=== PATIENT | male | born 1950 | race Caucasian/White ===

== ENCOUNTER → 2020-03-01 | Outpatient (REF) | payer MEDICARE, OTHER ==
[2020-03-01 17:56] LABS: CREATININE, URINE 77.6 MG/DL; MALB URINE SIEMENS 9.3 MG/L; MAU/CREAT RATIO 11.9 MCG/MG (0.0-30.0)
== END ==
LOC: M LAB REF 17:01
PROVIDERS: ATTEND Nurse Practitioner Family
DX: E11.9 Type 2 diabetes mellitus without complications (principal)